=== PATIENT | male | born 1995 | race Caucasian/White ===

== ENCOUNTER 2021-06-09 02:12 | Emergency (ER) | payer BC ==
[2021-06-09 03:01] VITALS: BP 125/71
[2021-06-09] MEDS ORDERED: Metoprolol Succinate 25 MG Tab.ER PO ONE (03:08)
[2021-06-09 03:19] VITALS: PULSE 86
== END 2021-06-09 03:30 | disposition home or self-care (01) ==
LOC: JD.ED 02:12
DX: R00.2 Palpitations (principal)
CPT/HCPCS: 93005; 99284; A9270; 93010